=== PATIENT | female | born 1960 | race Caucasian/White ===

== ENCOUNTER 2017-11-23 23:03 | Emergency (ER) | payer SELFPAY ==
[2017-11-23 23:28] LABS: ADD MAN DIFF? NO
[2017-11-23 23:32] LABS: BASO % 1 % (0-3); EOS # 0.2 x10^3/uL (0.0-0.7); EOS % 5 % (0-3); LYMPH # 1.4 x10^3/uL (1.0-4.8); LYMPH % 26 % (24-48); MEAN CORPUSCULAR HEMOGLOBIN 34 pg (25-35); MEAN CORPUSCULAR HGB CONC 35 g/dL (31-37); MEAN CORPUSCULAR VOLUME 97 fL (79-100); MONO # 0.5 x10^3/uL (0.0-1.1); MONO % 8 % (0-9); NEUT # 3.4 x10^3uL (1.8-7.7); NEUT % 61 % (31-73); PLATELET COUNT 170 x10^3/uL (140-400); RED BLOOD COUNT 4.44 x10^6/uL (3.50-5.40); RED CELL DISTRIBUTION WIDTH 13.6 % (11.5-14.5); WHITE BLOOD COUNT 5.5 x10^3/uL (4.0-11.0)
[2017-11-23 23:35] LABS: INFLUENZA A PATIENT NEGATIVE (NEGATIVE); INFLUENZA B PATIENT NEGATIVE (NEGATIVE); OBC FLU VALID
[2017-11-23 23:39] LABS: ANION GAP 11 (6-14); BLOOD UREA NITROGEN 13 mg/dL (7-20); BUN/CREATININE RATIO 16 (6-20); CALCIUM 8.7 mg/dL (8.5-10.1); CARBON DIOXIDE 27 mmol/L (21-32); CHLORIDE 100 mmol/L (98-107); CREATININE 0.8 mg/dL (0.6-1.0); GFR 73.4; GLUCOSE 141 mg/dL (70-99); POTASSIUM 3.8 mmol/L (3.5-5.1); SODIUM 138 mmol/L (136-145)
[2017-11-23 23:45] LABS: ALBUMIN 3.9 g/dL (3.4-5.0); ALBUMIN/GLOBULIN RATIO 0.9 (1.0-1.7); ALK PHOS 135 U/L (46-116); ALT (SGPT) 45 U/L (14-59); AST (SGOT) 29 U/L (15-37); TOTAL BILIRUBIN 0.3 mg/dL (0.2-1.0); TOTAL PROTEIN 8.1 g/dL (6.4-8.2)
[2017-11-23 23:47] LABS: TROPONINI < 0.017 ng/mL (0.000-0.055)
[2017-11-23 23:53] LABS: CKMB INDEX 1.5 % (0-4); CKMB MASS 1.2 ng/mL (0.0-3.6); CREATINE KINASE 81 U/L (26-192)
[2017-11-23 23:54] LABS: NT-PRO BNP 133 pg/mL (0-124)
[2017-11-23 23:56] LABS: THYROID STIM HORMONE (TSH) 0.936 uIU/mL (0.358-3.74)
[2017-11-24] MEDS: IPRATRPIUM/ALBUTEROL 0.5/2.5MG 3 ML NEBU. NEB (00:09)
[2017-11-24] MEDS ORDERED: AZITHROMYCIN 250 MG TABLET. PO (01:45)
[2017-11-24 09:11] LABS: NEGATIVE OBC STREP NEG; POSITIVE OBC STREP POS
== END 2017-11-24 01:18 | disposition home or self-care (01) ==
LOC: ER 23:03
DX: S62.644A Nondisplaced fracture of proximal phalanx of right ring finger, initial encounter for closed fracture (principal); J40 Bronchitis, not specified as acute or chronic; M54.2 Cervicalgia; J44.9 Chronic obstructive pulmonary disease, unspecified; G47.30 Sleep apnea, unspecified; F17.210 Nicotine dependence, cigarettes, uncomplicated; F12.10 Cannabis abuse, uncomplicated; F15.10 Other stimulant abuse, uncomplicated; Z86.19 Personal history of other infectious and parasitic diseases; Z90.49 Acquired absence of other specified parts of digestive tract; Z79.899 Other long term (current) drug therapy; Z88.2 Allergy status to sulfonamides; Z87.442 Personal history of urinary calculi; X58.XXXA Exposure to other specified factors, initial encounter; Y93.89 Activity, other specified; Y92.89 Other specified places as the place of occurrence of the external cause; Y99.8 Other external cause status
CPT/HCPCS: 36415; 71046; 73140; 80053; 82553; 83880; 84443; 84484; 85025; 87070; 87804; 87804-59; 87880; 93005; 94640; 99285-25; J7620

== ENCOUNTER 2017-12-12 06:15 | Emergency (ER) | payer SELFPAY ==
[2017-12-12] MEDS: predniSONE 10 MG TABLET PO ×2 (07:09)
== END 2017-12-12 07:21 | disposition home or self-care (01) ==
LOC: ER 06:15
DX: T78.49XA Other allergy, initial encounter (principal); J45.909 Unspecified asthma, uncomplicated; F32.9 Major depressive disorder, single episode, unspecified; G47.30 Sleep apnea, unspecified; Z88.2 Allergy status to sulfonamides; W57.XXXA Bitten or stung by nonvenomous insect and other nonvenomous arthropods, initial encounter
CPT/HCPCS: 99283; J7512

== ENCOUNTER 2018-06-17 16:45 | Emergency (ER) | payer SELFPAY ==
[~2018-06-17] VITALS: Ht 154.9 cm; Wt 72.6 kg
[~2018-06-17 16:45] MED LIST: AZIT250T6 PO; CEPH-263 PO; DIPH25CA58 PO; NAPR-683 PO; PRED50TA PO; PROAIR HFA8.5 GM INH
[2018-06-17 17:13] VITALS: BP 138/78
[2018-06-17] MEDS ORDERED: LIDOCAINE WITH 8.4% SOD BICARB 3 ML DISP.SYRIN. INJ ONE (17:45)
[2018-06-17] MEDS ORDERED: AMOX1TAB61 PO (18:24)
--- NOTE | 2018-06-17 18:25 | PHYS DOC ---
Past Medical History Past Medical History: Asthma, COPD, Depression Additional Past Medical Histor: HEP C,SLEEP APNEA, Past Surgical History: Additional Past Surgical Histo: CARPEL TUNNEL,lithotripsy,rt knee Alcohol Use: None Drug Use: None Adult General Chief Complaint Chief Complaint: INSECT BITE HPI HPI Patient is a 57 year old female who presents to the emergency room with complaints of possible spider bite/abscess to her low back above her tailbone for the last 4 days. Patient states that the area is red, hot, and very painful to touch and tender. She denies any drainage from the site . She reports a history of asthma, COPD, depression, hepatitis C, and sleep apnea. Patient reports allergies to sulfa drugs and Keflex. Currently she is rating her pain as a 10 out of 10 on the pain scale states she has not taken anything at home for relief of her symptoms. Review of Systems Review of Systems Constitutional: Denies fever or chills [] Musculoskeletal: Denies joint pain, reports low back pain at the abscess site. Integument: Reports red, warm, tender area to low back above coccyx for the last 4 days, States it is possibly a spider bite. Neurologic: Denies headache, focal weakness or sensory changes [] All other systems were reviewed and found to be within normal limits, except as documented in this note. Current Medications Current Medications Current Medications Medications (Trade) Dose Ordered Sig/Ric Start Time Stop Time Status Last Admin Dose Admin Acetaminophen/ Hydrocodone Bitart (Lortab 5/325) 2 tab 1X ONCE 06/17/18 18:30 06/17/18 18:31 DC 06/17/18 18:28 2 TAB Lidocaine/Sodium Bicarbonate (Buffered Lidocaine 1%) 3 ml 1X ONCE 06/17/18 17:45 06/17/18 17:46 DC 06/17/18 17:45 3 ML Allergies Allergies Allergies Coded Allergies Type Severity Reaction Last Updated Verified Sulfa (Sulfonamide Antibiotics) Allergy Severe hives 11/26/14 No cephalexin Allergy Intermediate swelling 12/12/17 Yes Physical Exam Physical Exam Constitutional: Well developed, well nourished, moderate distress, non-toxic appearance. [] HENT: Normocephalic, atraumatic, bilateral external ears normal, nose normal. [] Eyes: PERRLA, conjunctiva normal, no discharge. [] Skin: Warm, dry, 3 cm diameter area of erythema and warmth to the lower back above tailbone, this area has a central fluctuant area noted, patient reports increased pain with palpation of this area. Back: no CVA tenderness. [] Neurologic: Alert and oriented X 3, normal motor function, normal sensory function, no focal deficits noted. [] Psychologic: Affect normal, judgement normal, mood normal. [] Current Patient Data Vital Signs Vital Signs Date Time Temp Pulse Resp B/P (MAP) Pulse Ox O2 Delivery O2 Flow Rate FiO2 06/17/18 17:13 98.0 88 18 138/78 (98) 99 Room Air 98.0 EKG EKG [] Radiology/Procedures Radiology/Procedures Abscess Incision and Drainage with irrigation by me: Location: low back above gluteal fold Anesthesia: Local 1% Lidocaine Technique: Disrupted loculations w/ instrumentation Packin/4" iodoform gauze Complications: Neurovascularly intact post procedure 48 hour wound check. Scar minimization instructions given. Patient's skin symptoms have stabilized while they have been evaluated in the department and are appropriate for outpatient care and work up. Exam and w/u not consistent w/ sepsis, deep space infection, or foreign body.[] Course & Med Decision Making Course & Med Decision Making Pertinent Labs and Imaging studies reviewed. (See chart for details) Patient is a 57-year-old female who presented to the emergency room with complaints of a tender, warm, red area to her low back for the last 4 days she reported concerns of it being a spider bite. VSS, patient was given 2 hydrocodone in the emergency department for relief of her pain. The abscess site was I&D after administering 1% buffered lidocaine to the area. Wound culture was collected. And a small amount of packing was placed inside of the wound. Nonstick dressing was applied over the site. Patient was given a prescription for Augmentin. She was told to follow-up with Dr. Ibrahim' s office in the next 1-2 days and advised to call in the morning for an appointment. She verbalized understanding of her home care, follow-up, return to ED instructions with no further questions or concerns. She ambulated with a steady gait out of the department. [] Dragon Disclaimer Dragon Disclaimer This electronic medical record was generated, in whole or in part, using a voice recognition dictation system. Departure Departure Impression: Primary Impression: Abscess Disposition: HOME, SELF-CARE Condition: STABLE Referrals: NO PCP (PCP) KRIS IBRAIHM MD Patient Instructions: Abscess, [id number] Additional Instructions: Download the Good Rx rufus and fill the prescription, use as directed. You may take tylenol or ibuprofen as needed for pain. Dressing changes 2x/day. Have the packing removed in 2-3 days. Follow up with Dr. Ibrahim in 1-2 days call for an appointment tomorrow morning. Return to the ED if your symptoms worsen. Scripts Amoxicillin/Potassium Clav (AUGMENTIN 875-125 TABLET) 1 Each Tablet 1 TAB PO BID for 7 Days, #14 TAB 0 Refills Prov: ALIA RUBIO SOLICITING FREIGHT AGENT 06/17/18 ALIA RUBIO SOLICITING FREIGHT AGENT Jun 17, 2018 18:25
[2018-06-17] MEDS ORDERED: HYDROcodone/APAP 5/325MG 1 TAB TABLET PO ONE (18:30)
== END 2018-06-17 18:30 | disposition home or self-care (01) ==
LOC: ER 16:45
DX: L02.212 Cutaneous abscess of back [any part, except buttock and flank] (principal); J44.9 Chronic obstructive pulmonary disease, unspecified; F32.9 Major depressive disorder, single episode, unspecified; Z98.890 Other specified postprocedural states; Z88.2 Allergy status to sulfonamides; Z88.1 Allergy status to other antibiotic agents
CPT/HCPCS: 10060; 87071; 87075; 99284

== ENCOUNTER 2021-02-18 13:13 | Emergency (ER) | payer MEDICAID ==
[~2021-02-18] VITALS: Ht 154.9 cm; Wt 77.0 kg
[~2021-02-18 13:13] MED LIST changes: +ALBU2.5V8 INH; +AMOX1TAB61 PO; -PROAIR HFA8.5 GM INH
[2021-02-18] MEDS ORDERED: IV NORMAL SALINE 1000ML BAG 1,000 ML IV ONE (15:15)
[2021-02-18 15:16] LABS: BILIRUBIN,URINE NEGATIVE (NEG); CLARITY,URINE CLOUDY; COLOR,URINE YELLOW; NITRITE,URINE NEGATIVE (NEG); PH,URINE 7.5 (<5.0-8.0); PROTEIN,URINE NEGATIVE (NEG-TRACE)
[2021-02-18] MEDS ORDERED: ONDANSETRON PF 4 MG/2 ML VIAL. IV ONE (15:30)
[2021-02-18] MEDS ORDERED: KETOROLAC 15 MG/ML VIAL. IVP ONE (15:30)
[2021-02-18 15:35] LABS: AMORPHOUS SEDIMENT,UR PRESENT /HPF; BACTERIA,URINE FEW /HPF (0-FEW); RBC,URINE RARE /HPF (0-2); WBC,URINE RARE /HPF (0-4)
[2021-02-18] MEDS ORDERED: MORPHINE SULFATE 4 MG/ML VIAL. ONE (16:14)
[2021-02-18] MEDS ORDERED: MORPHINE SULFATE 4 MG/ML VIAL. IV ONE (16:15)
--- NOTE | 2021-02-18 16:42 | RAD ---
CT abdomen and pelvis without contrast PQRS statement: CT scans at this facility use dose reduction including either automated exposure cont rol, iterative reconstructions, and /or weight based radiation dosing via mA and kV modification when appropriate to reduce radiation dose to as low as reasonably achievable. HISTORY: Right flank pain. COMPARISON: CT abdomen and pelvis March 04, 2015. Abdomen findings: Hiatal hernia the upper stomach. Lumbar disc bulges and facet spurring with spinal canal stenoses. Lung bases are unremarkable. Cholecystectomy. Mild left adrenal hyperplasia is stable . There is subtle surface irregularity of the liver raising the possibility of imaging changes of muna er cirrhosis. Spleen size is normal and there is no ascites. This is similar the prior exam. Cholecys tectomy. Spleen, right adrenal gland, pancreas and left kidney unremarkable. Small right renal upper pole calculus measuring 4 mm. No ureteral calculi or hydronephrosis. Appendectomy. Sigmoid diverticul osis. Calcified plaque of the aorta and abdominal arteries and iliac arteries. No abdominal fluid. Pelvis findings: Calcified uterine fibroids. Pelvic phleboliths. No bladder calculi. Ovaries, rectum and bones are unremarkable. IMPRESSION: 1. Nonobstructing right renal calculus. No ureteral or bladder calculi or hydronephrosis or perinephr ic edema. 2. Appendectomy. 3. Uterine fibroids. 4. Lumbar disc disease and facet arthrosis with spinal canal and neural foraminal stenoses. 5. Hiatal hernia the upper stomach. Electronically signed by: Silverio Forrest MD (02/18/2021 4:40 PM) [id number]
--- NOTE | 2021-02-18 17:06 | ED.ADGEN ---
Past Medical History Past Medical History: Asthma, COPD, Depression, Diverticulitis, Kidney Stone Additional Past Medical Histor: HEP C,SLEEP APNEA, Past Surgical History: Additional Past Surgical Histo: CARPEL TUNNEL,lithotripsy,rt knee Smoking Status: Current Every Day Smoker Alcohol Use: None Drug Use: None General Adult EDM: Chief Complaint: FLANK PAIN HPI: HPI: Patient is a 60 year old female who presents emergency department with com plaints of right-sided flank pain for the last 2 days. Patient reports that she had similar pain last weekend but it went away. She states that the pain began again today. She reports that it feels like previous kidney stones felt. She denies any dysuria, hematuria, or increased urinary frequency patient denies any difficulty voiding. She denies any fever, cough, body aches, fatigue, nausea, vomiting, diarrhea, chest pain, or palpitations. She denies any recent ill contacts. Patient states that the pain does increase with movement at times but denies any radiation of the pain to her lower extremities or buttocks. She currently rates pain a 10 out of 10 on pain scale, she denies any alleviating or exacerbating factors. Patient's medical and surgical history as documented above. Review of Systems: Review of Systems: Complete ROS is negative unless otherwise noted in HPI. Current Medications: Current Medications Medications (Trade) Dose Ordered Sig/[facility] Start Time Stop Time Status Last Admin Dose Admin Ketorolac Tromethamine (Toradol 15mg Vial) 15 mg 1X ONCE 02/18/21 15:30 02/18/21 15:31 DC 02/18/21 15:40 15 MG Morphine Sulfate (Morphine Sulfate) 4 mg STK-MED ONCE 02/18/21 16:14 02/18/21 16:14 DC Ondansetron HCl (Zofran) 4 mg 1X ONCE 02/18/21 15:30 02/18/21 15:31 DC 02/18/21 15:40 4 MG Sodium Chloride 1,000 ml @ 1,000 mls/hr 1X ONCE 02/18/21 15:15 02/18/21 16:14 DC 02/18/21 15:40 1,000 MLS/HR Allergies: Allergies: Allergies Coded Allergies Type Severity Reaction Last Updated Verified Sulfa (Sulfonamide Antibiotics) Allergy Severe hives 11/26/14 No cephalexin Allergy Intermediate swelling 12/12/17 Yes I S O L A T I O N *CONTACT* Allergy Unknown 06/24/18 Yes Physical Exam: PE: See Above Constitutional: Well developed, well nourished, no acute distress, non-toxic appearance. [] HENT: Normocephalic, atraumatic, bilateral external ears normal, nose normal. [] Eyes: PERRLA, EOMI, conjunctiva normal, no discharge. [] Neck: Normal range of motion, no stridor. [] Cardiovascular:Heart rate regular rhythm Lungs & Thorax: Respirations even and unlabored, no retractions, no respiratory distress Abdomen: soft and nontender anteriorly, right flank tenderness to palpation, no rebound tenderness, no guarding, no palpable mass Back, no bony tenderness, no CVA tenderness Skin: Warm, dry, no erythema, no rash. [] Extremities: No cyanosis, ROM intact, no edema. [] Neurologic: Alert and oriented X 3, normal motor, normal sensory, no focal deficits noted. [] Psychologic: Affect normal, judgement normal, mood normal. [] Current Patient Data: Labs: Laboratory Tests Test 02/18/21 15:04 02/18/21 17:30 Urine Collection Type Unknown Urine Color Yellow Urine Clarity Cloudy Urine pH 7.5 (<5.0-8.0) Urine Specific [place] 1.015 (1.000-1.030) Urine Protein Negative mg/dL (NEG-TRACE) Urine Glucose (UA) Negative mg/dL (NEG) Urine Ketones (Stick) Negative mg/dL (NEG) Urine Blood Negative (NEG) Urine Nitrite Negative (NEG) Urine Bilirubin Negative (NEG) Urine Urobilinogen Dipstick 1.0 mg/dL (0.2 mg/dL) Urine Leukocyte Esterase Negative (NEG) Urine RBC Rare /HPF (0-2) Urine WBC Rare /HPF (0-4) Urine Squamous Epithelial Cells Mod /LPF Urine Amorphous Sediment Present /HPF Urine Bacteria Few /HPF (0-FEW) White Blood Count 5.3 x10^3/uL (4.0-11.0) Red Blood Count 4.16 x10^6/uL (3.50-5.40) Hemoglobin 13.4 g/dL (12.0-15.5) Hematocrit 39.1 % (36.0-47.0) Mean Corpuscular Volume 94 fL (79-100) Mean Corpuscular Hemoglobin 32 pg (25-35) Mean Corpuscular Hemoglobin Concent 34 g/dL (31-37) Red Cell Distribution Width 13.8 % (11.5-14.5) Platelet Count 209 x10^3/uL (140-400) Neutrophils (%) (Auto) 62 % (31-73) Lymphocytes (%) (Auto) 28 % (24-48) Monocytes (%) (Auto) 8 % (0-9) Eosinophils (%) (Auto) 2 % (0-3) Basophils (%) (Auto) 1 % (0-3) Neutrophils # (Auto) 3.3 x10^3/uL (1.8-7.7) Lymphocytes # (Auto) 1.5 x10^3/uL (1.0-4.8) Monocytes # (Auto) 0.4 x10^3/uL (0.0-1.1) Eosinophils # (Auto) 0.1 x10^3/uL (0.0-0.7) Basophils # (Auto) 0.0 x10^3/uL (0.0-0.2) Sodium Level 139 mmol/L (136-145) Potassium Level 3.8 mmol/L (3.5-5.1) Chloride Level 106 mmol/L (98-107) Carbon Dioxide Level 25 mmol/L (21-32) Anion Gap 8 (6-14) Blood Urea Nitrogen 12 mg/dL (7-20) Creatinine 0.7 mg/dL (0.6-1.0) Estimated GFR (Cockcroft-Gault) 84.8 BUN/Creatinine Ratio 17 (6-20) Glucose Level 117 mg/dL (70-99) H Calcium Level 8.4 mg/dL (8.5-10.1) L Magnesium Level 1.9 mg/dL (1.8-2.4) Total Bilirubin 0.4 mg/dL (0.2-1.0) Aspartate Amino Transferase (AST) 34 U/L (15-37) Alanine Aminotransferase (ALT) 40 U/L (14-59) Alkaline Phosphatase 106 U/L (46-116) Total Protein 7.3 g/dL (6.4-8.2) Albumin 3.3 g/dL (3.4-5.0) L Albumin/Globulin Ratio 0.8 (1.0-1.7) L Laboratory Tests 02/18/21 17:30 Laboratory Tests 02/18/21 17:30 Vital Signs: Vital Signs Date Time Temp Pulse Resp B/P (MAP) Pulse Ox O2 Delivery O2 Flow Rate FiO2 02/18/21 18:50 75 18 151/67 (95) 99 Room Air 02/18/21 15:30 97.7 97.7 EKG: EKG: [] Heart Score: C/O Chest Pain: No Risk Scores: Score 0 - 3: 2.5% MACE over next 6 weeks - Discharge Home Score 4 - 6: 20.3% MACE over next 6 weeks - Admit for Clinical Observation Score 7 - 10: 72.7% MACE over next 6 weeks - Early Invasive Strategies Radiology/Procedures: Radiology/Procedures: PROCEDURE: CT ABDOMEN PELVIS WO CONTRAST CT abdomen and pelvis without contrast PQRS statement: CT scans at this facility use dose reduction including either automated exposure control, iterative reconstructions, and /or weight based radiation dosing via mA and kV modification when appropriate to reduce radiation dose to as low as reasonably achievable. HISTORY: Right flank pain. COMPARISON: CT abdomen and pelvis March 04, 2015. Abdomen findings: Hiatal hernia the upper stomach. Lumbar disc bulges and facet spurring with spinal canal stenoses. Lung bases are unremarkable. Cholecystectomy. Mild left adrenal hyperplasia is stable. There is subtle surface irregularity of the liver raising the possibility of imaging changes of liver cirrhosis. Spleen size is normal and there is no ascites. This is similar the prior exam. Cholecystectomy. Spleen, right adrenal gland, pancreas and left kidney unremarkable. Small right renal upper pole calculus measuring 4 mm. No ureteral calculi or hydronephrosis. Appendectomy. Sigmoid diverticulosis. Calcified plaque of the aorta and abdominal arteries and iliac arteries. No abdominal fluid. Pelvis findings: Calcified uterine fibroids. Pelvic phleboliths. No bladder calculi. Ovaries, rectum and bones are unremarkable. IMPRESSION: 1. Nonobstructing right renal calculus. No ureteral or bladder calculi or hydronephrosis or perinephric edema. 2. Appendectomy. 3. Uterine fibroids. 4. Lumbar disc disease and facet arthrosis with spinal canal and neural foramina l stenoses. 5. Hiatal hernia the upper stomach.[] Course & Med Decision Making: Course & Med Decision Making Pertinent Labs and Imaging studies reviewed. (See chart for details) 60-year-old female presented to emergency department with complaints of right flank pain and concerns of a kidney stone. CT of the patient's abdomen pelvis not reveal any acute findings, there was a intrarenal calculus on the right but no calculus or evidence of a recent calculus in the right ureter. CBC was unremarkable; CMP revealed glucose of 117, calcium 8.4, otherwise unremarkable; UA was negative for nitrates with rare red blood cells and rare white blood cells there was few bacteria, not concerning for UTI. In the emergency department the patient was given 1 L of normal saline IV, 4 mg of Zofran, and 50 mg of Toradol. She reported reduced nausea after those medications but did not experience any change in her pain. Patient was given 4 mg of morphine IV and reported feeling better after medication. I discussed the results with the patient and advised her that my suspicion is that she has strained her flank. I advised her that I will prescribe naproxen and Flexeril, encouraged her to apply ice or heat to the sore area as needed for comfort, activity as tolerated. Follow-up with her primary care doctor in the next 1 to 2 days for reevaluation, return to the ER if symptoms worsen or fever develops. Patient verbalized an understanding of home care, medications, follow-up, and return to ED instructions and was in agreement with the plan of care. [] Last Disclaimer: Last Disclaimer: This electronic medical record was generated, in whole or in part, using a voice recognition dictation system. Departure Departure Impression: Primary Impression: Acute right flank pain Disposition: HOME / SELF CARE / HOMELESS Condition: STABLE Referrals: NO PCP (PCP) Patient Instructions: Flank Pain, [id number] Additional Instructions: Fill the prescription(s) and use as directed. Apply heat or ice for to sore areas as needed for comfort. Activity as tolerated. Follow up with your primary care doctor in 1 to 2 days for reevaluation, return to the ER if symptoms worsen or you develop a fever. Scripts Cyclobenzaprine Hcl (CYCLOBENZAPRINE HCL) 10 Mg Tablet 1 TAB PO TID PRN for MUSCLE PAIN for 10 Days, #30 TAB 0 Refills Prov: ALIA RUBIO CASTINGS TRIMMER 02/18/21 Naproxen (NAPROXEN) 500 Mg Tablet 1 TAB PO BID PRN for PAIN for 10 Days, #20 TAB 0 Refills Prov: ALIA RUBIO APRN 02/18/21 Attending Signature Attending Signature I have participated in the care of this patient and I have reviewed and agree with all pertinent clinical information above including history, exam, and recommendations. ALIA RUBIO APRN Feb 18, 2021 17:06 ADY VALDIVIA DO Feb 19, 2021 10:52
[2021-02-18 17:46] LABS: BASO % 1 % (0-3); EOS # 0.1 x10^3/uL (0.0-0.7); EOS % 2 % (0-3); HEMATOCRIT 39.1 % (36.0-47.0); HEMOGLOBIN 13.4 g/dL (12.0-15.5); LYMPH # 1.5 x10^3/uL (1.0-4.8); LYMPH % 28 % (24-48); MEAN CORPUSCULAR HEMOGLOBIN 32 pg (25-35); MEAN CORPUSCULAR HGB CONC 34 g/dL (31-37); MEAN CORPUSCULAR VOLUME 94 fL (79-100); MONO # 0.4 x10^3/uL (0.0-1.1); MONO % 8 % (0-9); NEUT # 3.3 x10^3/uL (1.8-7.7); NEUT % 62 % (31-73); PLATELET COUNT 209 x10^3/uL (140-400); RED BLOOD COUNT 4.16 x10^6/uL (3.50-5.40); RED CELL DISTRIBUTION WIDTH 13.8 % (11.5-14.5); WHITE BLOOD COUNT 5.3 x10^3/uL (4.0-11.0)
[2021-02-18 17:53] LABS: CALCIUM 8.4 mg/dL (8.5-10.1); CREATININE 0.7 mg/dL (0.6-1.0); GFR 84.8; POTASSIUM 3.8 mmol/L (3.5-5.1)
[2021-02-18 17:58] LABS: ALBUMIN 3.3 g/dL (3.4-5.0); ALBUMIN/GLOBULIN RATIO 0.8 (1.0-1.7); MAGNESIUM 1.9 mg/dL (1.8-2.4); TOTAL BILIRUBIN 0.4 mg/dL (0.2-1.0); TOTAL PROTEIN 7.3 g/dL (6.4-8.2)
[2021-02-18] MEDS ORDERED: NAPR-514 PO (18:36)
[2021-02-18] MEDS ORDERED: CYCL10TA2 PO (18:36)
[2021-02-18 18:50] VITALS: BP 151/67
== END 2021-02-18 18:50 | disposition home or self-care (01) ==
LOC: ER 13:13
DX: R10.31 Right lower quadrant pain (principal); J44.9 Chronic obstructive pulmonary disease, unspecified; F32.9 Major depressive disorder, single episode, unspecified; F17.200 Nicotine dependence, unspecified, uncomplicated; Z87.442 Personal history of urinary calculi; Z98.890 Other specified postprocedural states; Z88.1 Allergy status to other antibiotic agents; Z88.8 Allergy status to other drugs, medicaments and biological substances
CPT/HCPCS: 36415; 74176; 80053; 81001; 83735; 85025; 96361; 96374; 96375; 99285; J1885; J2270; J2405; J7030